=== PATIENT | male | born 1995 | race Two or more races ===

== ENCOUNTER 2024-12-13 18:45 | Emergency (ER) | payer MEDICAID, SELFPAY ==
[2024-12-13 18:56] VITALS: BP 143/83; PULSE 106; RESP 18; TEMP 37.6; O2SAT 96; BMI 40.3
--- NOTE | 2024-12-13 18:59 | XR_ITS ---
Examination: PA lateral chest 2 views Technique: Upright PA lateral chest 2 views Exam date and time: December 15, 2024 1930 hrs. Indications: Fever beginning 2 days ago. Findings: Normal heart size No pneumonia or pulmonary edema Intact osseous structures Impression: No pneumonia identified
--- NOTE | 2024-12-13 18:59 | EDNOTE_ITS ---
Upper Respiratory Inf. RME/HPI General Chief Complaint: Flu Like Symptoms Stated Complaint: FEVER, COUGH, CHEST PAIN Time Seen by Provider: 12/13/24 18:55 Arrival date/time: 12/13/24 18:45 29-year-old male no history of asthma or lung disorders reports today with complaints of cough and fever x 1 week. Patient reports having right sided chest pain and wheezing that began yesterday. He states that he has been taken [id number] medication such as NyQuil with no improvement of symptoms. He denies nausea or vomiting back pain jaw or shoulder pain abdominal pain weakness or fatigue Limitations: no limitations Related Data Previous Rx's ?Medication ?Instructions ?Recorded albuterol sulfate 90 mcg/actuation 2 puff inhalation Q ID PRN 12/13/24 aerosol inhaler (Ventolin HFA) shortness of breath or wheezing #8.5 grams azithromycin 250 mg tablet See Rx Instructions PO .COM PLEX #6 12/13/24 (Zithromax Z-Alirio) tabs prednisone 20 mg tablet 60 mg PO QDAY 4 days #12 tab s 12/13/24 promethazine 6.25 mg-codeine 10 5 ml PO Q6H PRN cough #118 mL 12/13/24 mg/5 mL syrup Allergies Allergy/AdvReac Type Severity Reaction Status Date / Time No Known Allergies Allergy Verified 12/13/24 18:47 Review of Systems Constitutional Constitutional: Denies chills and Reports fever(s) ENT Ears, Nose, Mouth, and Throat: Denies throat swelling and Denies tongue swelling Cardiovascular Cardiovascular: Reports chest pain and Denies dyspnea Respiratory Respiratory: Reports cough, Denies dyspnea and Reports wheezing Musculoskeletal Musculoskeletal: Denies arthralgias and Denies back pain Allergic/Immunologic Allergic/Immunologic: Denies throat swelling, Denies tongue swelling and Reports wheezing Past Medical History Social History SMOKING STATUS: Never smoker ED Exam General Limitations: Present no limitations General appearance: Present alert and in no apparent distress Head Head exam: Present atraumatic Eye Eye exam: Present normal appearance, PERRL and EOMI ENT ENT exam: Present normal exam, normal oropharynx and mucous membranes moist Neck Neck exam: Present normal inspection, full ROM and trachea midline Chest Chest inspection: Present normal inspection and symmetric chest wall rise Respiratory Respiratory exam: Present other (crackles right posterior lung); Absent normal lung sounds bilaterally or respiratory distress Cardiovascular Cardiovascular exam: Present regular rate, normal rhythm and normal heart sounds Abdominal Exam Abdominal exam: Present soft and normal bowel sounds Extremities Exam Extremities exam: Present normal inspection and full ROM Back Exam Back exam: Present normal inspection and full ROM Neurological Exam Neurological exam: Present alert, oriented X3 and CN II-XII intact Psychiatric Psychiatric exam: Present normal affect and normal mood Skin Skin exam: Present warm, dry, intact and normal color Course Course Course Narrative: 29-year-old male reports with complaints of flulike symptoms. Patient's chest x-ray with some increased bronchial markings left lower lobe. Patient received albuterol neb treatment reassessment of the patient states that he is breathing much better lungs are now clear to auscultation bilaterally oxygen saturations are above 95% he is in no respiratory distress he will be discharged home for treatment for possible pneumonia advised to hydrate well follow-up his primary care provider in 48 hours or return to emergency department if symptoms worsen Quality Measures none Orders Category Date Time Status Bedside Influenza A&B Antigen Test NOW Care 12/13/24 18:59 Completed XR chest 2V Stat Exams 12/13/24 18:59 Taken Albuterol/Ipratr Rt Irma [Duoneb Rt Irma] Med 12/13/24 19:42 Discontinued 3 ml INH X1 ONE Vital Signs Vital signs: Vital Signs Temperature 99.7 F 12/13/24 18:56 Pulse Rate 106 H 12/13/24 18:56 Respiratory Rate 18 12/13/24 18:56 Blood Pressure 143/83 H 12/13/24 18:56 Pulse Oximetry (%) 96 12/13/24 18:56 Oxygen Delivery Method Room Air 12/13/24 18:56 Upper Respiratory Infection Patient data External records reviewed:: None Clinical information provided by:: patient Social determinants that could affect healthcare access:: none Patient has the following chronic illnesses:: none How is presenting disease/condition affected by chronic disease/condition?: no chronic disease Evaluation data The following diagnostics were reviewed and interpreted by me:: lab results and radiology exam(s) Lab and/or radiology exams considered but not ordered:: none Interpretation Summary: pneumonia Medications / Prescriptions Medications or Prescriptions considered but not ordered:: none Medication administrations:: Medication Administration History Discontinued Medications Albuterol/Ipratropium (Albuterol/Ipratropium (Duoneb) Rt Irma 3 Ml Nebu) 3 ml INH X1 ONE Stop: 12/13/24 19:43 Last Admin: 12/13/24 20:16 Dose: 3 ml Documented By: TY as above Consultations Consultation(s) initiated? (list below): No Diagnosis Upper Respiratory Differential Diagnosis: upper respiratory infection, viral infection, bronchitis and influenza Most likely diagnosis given after review of the tests above:: pneumonia Admission Indicated Admission indicated?: not indicated Admission Request Was there a request for admission?: No Disposition Plan Disposition Plan: Discharge Discharge Attestation Discharge Attestation: The patient and all family members were given an opportunity to ask questions and understood the discharge instructions. Discharge instructions specifically effects, indications for sooner follow up or return to the emergency department, and the expected course of current diagnosis. Patient condition: Stable Discharge Plan Plan Patient Disposition: HOME (Self Care) Prescriptions/Referrals Prescriptions/Med Rec: New azithromycin [Zithromax Z-Alirio] 250 mg tablet See Rx Instructions .ROUTE .COMPLEX Qty: 6 0RF Rx Instructions: For 250 mg dose pack: take 500 mg today (day 1), then 250 mg for 4 days (days 2-5) albuterol sulfate [Ventolin HFA] 90 mcg/actuation HFA aerosol inhaler 2 puff inhalation QID PRN (Reason: shortness of breath or wheezing) Qty: 8.5 0RF promethazine-codeine 6.25-10 mg/5 mL syrup 5 ml PO Q6H PRN (Reason: cough) Qty: 118 0RF prednisone 20 mg tablet 60 mg PO QDAY 4 Days Qty: 12 0RF Taper: Prednisone Taper 20 mg DAILY for 2 Days and 0 Hour 10 mg DAILY for 2 Days and 0 Hour 5 mg DAILY for 7 Days and 0 Hour Referrals: Hunter Flynn MD [Primary Care Provider] - In 1 week Problem List Clinical Impression: Pneumonia Patient/Caregiver Discharge Instructions Discharge Activity: activity as tolerated Education Materials: ED Pneumonia (Adult) Additional Instructions: Take medications as directed hydrate well follow with your primary care provider in 48 hours for reevaluation. If symptoms should worsen return to the emergency department Print Language: Albanian Stand Alone Forms: Naye Award Info., Patient Portal Info Letter
[2024-12-13] MEDS: ALBUTEROL/IPRATROPIUM (Duoneb) RT SOL 3 ML NEBU INH (20:16)
[2024-12-13 20:27] VITALS: PULSE 106; RESP 18; O2SAT 95
[2024-12-13 20:45] VITALS: RESP 18
== END 2024-12-13 20:46 | disposition home or self-care (01) ==
PROVIDERS: Emergency Provider Emergency Medicine; PCP Pediatrics
DX: J18.9 Pneumonia, unspecified organism (principal)
CPT/HCPCS: 71046; 87400; 94640; 99283; A9270